=== PATIENT | male | born 1965 | race Caucasian/White ===

== ENCOUNTER 2020-08-04 12:18 | Outpatient (REF) | payer BC, SELFPAY ==
[2020-08-04 22:14] LABS: Calculated LDL 77 mg/dL (<100); Cholesterol 132 mg/dL (<200); Glucose 83 mg/dL (74-106); HDL Cholesterol 33 mg/dL (40-60); TSH (W/Ref FT4) 1.97 uIU/mL (0.36-3.74); Triglyceride 111 mg/dL (<150)
[2020-08-07 11:09] LABS: Hepatitis C Ab w Rflx HCV PCR Negative (Negative)
== END 2020-08-04 12:38 ==
LOC: NCHCN 12:18
PROVIDERS: Visit Provider Nurse Practitioner Family
DX: E66.3 Overweight (principal); G47.30 Sleep apnea, unspecified; F41.1 Generalized anxiety disorder; Z11.59 Encounter for screening for other viral diseases
CPT/HCPCS: 80061; 82947; 86803; 84443

== ENCOUNTER 2020-10-03 15:51 | Outpatient (REF) | payer OTHER, SELFPAY ==
[2020-10-03 21:24] LABS: HCT 47.1 % (40.0-50.0); HGB 15.7 g/dL (13.5-17.5); MCH 29.6 pg (27.0-33.0); MCHC 33.3 % (32.0-36.0); MCV 88.9 fL (80-95); MPV 11.6 fL (8.0-11.0); Platelet Count 331 10^3/uL (130-400); RDW 12.2 % (11.8-14.1); RDW-SD 39.7 fL; WBC 10.86 10^3/uL (4.4-10.8)
[2020-10-03 21:35] LABS: Anion Gap 8.4 mmol/L (3-11); BUN 14 mg/dL (7-18); CO2 26.6 mmol/L (21.0-32.0); Calcium 9.2 mg/dL (8.5-10.1); Chloride 104 mmol/L (98-107); Glucose 101 mg/dL (74-106); Sodium 139 mmol/L (136-145)
== END 2020-10-03 15:52 | disposition home or self-care (01) ==
LOC: NCHCN 15:51
PROVIDERS: PCP Nurse Practitioner Family; Visit Provider Nurse Practitioner Family
DX: R53.83 Other fatigue (principal); R42 Dizziness and giddiness; F41.1 Generalized anxiety disorder; K21.9 Gastro-esophageal reflux disease without esophagitis
CPT/HCPCS: 80048; 85027